=== PATIENT | female | born 1990 ===

== ENCOUNTER → 2018-08-20 09:48 | Outpatient (CLI) | payer OTHER | END | disposition home or self-care (01) | LOC: LAB 09:48 | DX: J11.1 Influenza due to unidentified influenza virus with other respiratory manifestations (principal); R50.9 Fever, unspecified; A49.3 Mycoplasma infection, unspecified site ==

== ENCOUNTER 2024-09-23 15:00 | Inpatient (IN) | payer OTHER ==
[~2024-09-23] VITALS: Ht 162.6 cm; Wt 2.7 kg
[2024-10-01 11:17] VITALS: BP 132/71
[2024-10-01] MEDS ORDERED: PRENATAL TABLE1 EAC1 PO (11:52)
[2024-10-01] MEDS ORDERED: IRON325 MG PO (11:52)
[2024-10-01 11:55] LABS: BASO % 0.3 % (0.1-1.2); EOS # 0.08 (0.04-0.54); EOS % 1.2 % (0.7-7.0); HEMATOCRIT 35.1 % (34.1-44.9); HEMOGLOBIN 11.5 g/dL (11.2-15.7); LYMPH # 1.47 (1.18-3.74); LYMPH % 21.9 % (19.3-53.1); MEAN CORPUSCULAR HEMOGLOBIN 26.8 pg (25.6-32.2); MONO # 0.54 (0.24-0.82); NEUT # 4.55 (1.56-6.13); NEUT % 67.9 % (34.0-71.1); PLATELET COUNT 219 K/uL (163-369); RED BLOOD COUNT 4.29 M/uL (3.93-5.22); RED CELL DISTRIBUTION WIDTH 14.4 % (11.6-14.4)
[2024-10-01 12:18] LABS: INR < 0.93; PARTIAL THROMBOPLASTIN TIME 26.5 SECONDS (22.0-34.0); PROTHROMBIN TIME 10.2 SECONDS (9.0-11.5)
[2024-10-01 12:42] LABS: ALBUMIN 2.8 gm/dL (3.4-5.0); BILIRUBIN TOTAL 0.81 mg/dL (0.3-1.2); CREATININE SERUM 0.55 mg/dL (0.55-1.02); GFR 127.29; GLOBULINA 3.2 G/DL (2.4-3.5); POTASSIUM 4.13 mEq/L (3.5-5.1)
[2024-10-01 15:41] VITALS: BP 114/76
[2024-10-01] MEDS ORDERED: MISOPROSTOL 25 MCG TABLET ONE (16:16)
[2024-10-01] MEDS ORDERED: MISOPROSTOL 25 MCG TABLET VAG ONE (16:50)
[2024-10-01 18:58] VITALS: BP 127/87
[2024-10-01 23:20] VITALS: BP 116/77
[2024-10-02 03:10] VITALS: BP 123/87
[2024-10-02] MEDS ORDERED: MORPHINE SULFATE 4 MG/ML VIAL IV PRN (03:15)
[2024-10-02] MEDS ORDERED: OXYTOCIN 20 UNITS/500ML RL PIGGYBAG IV ONE (07:13)
[2024-10-02] MEDS ORDERED: OXYTOCIN 500 ML IV ONE (07:15)
[2024-10-02 07:45] VITALS: BP 110/67
[2024-10-02 11:12] VITALS: BP 111/65
[2024-10-02] MEDS ORDERED: MORPHINE SULFATE 4 MG/ML CARTRIDGE IV PRN (11:30)
[2024-10-02 13:39] VITALS: BP 132/73
[2024-10-02 15:15] VITALS: BP 117/64
[2024-10-02] MEDS ORDERED: CEFAZOLIN SODIUM 1,000 MG VIAL ONE (16:23)
[2024-10-02] MEDS ORDERED: OXYTOCIN 10 UNITS/ML VIAL ONE (16:48)
[2024-10-02] MEDS ORDERED: ERYTHROMYCIN BASE OPHT 1GM EACH TUBE OP ONE (16:48)
[2024-10-02] MEDS ORDERED: CEFAZOLIN SODIUM 1,000 MG VIAL IV SCH (17:00)
[2024-10-02] MEDS ORDERED: CITRIC ACID/SODIUM CITRATE 30 ML BLIST.PACK PO SCH (17:00)
[2024-10-02] MEDS ORDERED: MORPHINE SULFATE 4 MG/ML CARTRIDGE IV SCH (17:04)
[2024-10-02] MEDS ORDERED: OXYTOCIN 1,000 ML IV ONE (17:15)
[2024-10-02] MEDS ORDERED: KETOROLAC TROMETHAMINE 30 MG VIAL IV SCH (18:00)
[2024-10-02] MEDS ORDERED: KETOROLAC TROMETHAMINE 30 MG VIAL ONE (21:04)
[2024-10-03] MEDS ORDERED: KETOROLAC TROMETHAMINE 30 MG VIAL ONE (00:21)
[2024-10-03 01:16] VITALS: BP 113/72
[2024-10-03] MEDS ORDERED: ACETAMINOPHEN 500 MG GEL..CAP PO SCH (06:00)
[2024-10-03 07:35] LABS: BASO % 0.2 % (0.1-1.2); EOS # 0.02 (0.04-0.54); EOS % 0.2 % (0.7-7.0); HEMATOCRIT 31.9 % (34.1-44.9); HEMOGLOBIN 10.2 g/dL (11.2-15.7); LYMPH # 1.65 (1.18-3.74); LYMPH % 12.9 % (19.3-53.1); MEAN CORPUSCULAR HEMOGLOBIN 26.4 pg (25.6-32.2); MONO # 1.05 (0.24-0.82); MONO % 8.2 % (4.7-12.5); NEUT # 9.89 (1.56-6.13); NEUT % 77.5 % (34.0-71.1); PLATELET COUNT 212 K/uL (163-369); RED BLOOD COUNT 3.87 M/uL (3.93-5.22); RED CELL DISTRIBUTION WIDTH 14.8 % (11.6-14.4)
[2024-10-03 08:42] VITALS: BP 116/77; O2SAT 99
[2024-10-03] MEDS ORDERED: SIMETHICONE 125 MG CAPSULE PO SCH (09:00)
[2024-10-03] MEDS ORDERED: DOCUSATE SODIUM 100MG CAP PO SCH (09:00)
[2024-10-03] MEDS ORDERED: GABAPENTIN 300 MG CAPSULE PO SCH (09:00)
[2024-10-03] MEDS ORDERED: PNV,CALCIUM 72/IRON/FOLIC ACID 1 TAB TABLET PO SCH (09:00)
[2024-10-03] MEDS ORDERED: IBUprofen 600 MG TABLET PO SCH (12:00)
[2024-10-03 16:00] VITALS: BP 117/79; O2SAT 99
[2024-10-04 00:57] VITALS: BP 112/78; O2SAT 99
[2024-10-04 09:30] VITALS: BP 115/77
== END 2024-10-04 13:55 | disposition home or self-care (01) | DRG 788 ==
LOC: O/R 10-01 10:56 → LDR 10-01 10:56 → O/R 10-02 17:33 → OB/GYN 10-02 18:44
PROVIDERS: Obstetrics & Gynecology Gynecology; ADMIT Obstetrics & Gynecology Maternal & Fetal Medicine; ATTEND Obstetrics & Gynecology Maternal & Fetal Medicine
PROC: 4A1HXCZ Monitoring of Products of Conception, Cardiac Rate, External Approach (ICD-10-PCS; 2024-10-01)
PROC: 3E0P7VZ Introduction of Hormone into Female Reproductive, Via Natural or Artificial Opening (ICD-10-PCS; 2024-10-01)
PROC: 3E033VJ Introduction of Other Hormone into Peripheral Vein, Percutaneous Approach (ICD-10-PCS; 2024-10-02)
PROC: 10D00Z1 Extraction of Products of Conception, Low, Open Approach (ICD-10-PCS; principal; 2024-10-02 17:50)
DX: O82 Encounter for cesarean delivery without indication (principal); O62.1 Secondary uterine inertia; Z3A.39 39 weeks gestation of pregnancy; Z37.0 Single live birth